=== PATIENT | male | born 1960 | race Caucasian/White ===

== ENCOUNTER 2017-03-22 10:40 | Emergency (ER) | payer MEDICARE ==
[2017-03-22 12:49] LABS: BUN/CREATININE RATIO 16 (0-10); HEMOGLOBIN 13.5 gm/dl (14.0-17.5); RED BLOOD COUNT 3.73 M/UL (4.20-5.50); WHITE BLOOD COUNT 12.6 K/UL (4.5-11.0)
== END 2017-03-22 16:55 | disposition home or self-care (01) ==
LOC: ER1 10:40
PROVIDERS: Nurse Practitioner Family
DX: L02.11 Cutaneous abscess of neck (principal); G89.29 Other chronic pain; M54.9 Dorsalgia, unspecified; I00 Rheumatic fever without heart involvement; E11.65 Type 2 diabetes mellitus with hyperglycemia; K02.9 Dental caries, unspecified; L98.8 Other specified disorders of the skin and subcutaneous tissue; Z79.899 Other long term (current) drug therapy; Z96.649 Presence of unspecified artificial hip joint; Z87.891 Personal history of nicotine dependence
CPT/HCPCS: 36415; 70491; 80053; 85025; 87040; 87081; 87880; 96365; 96366; 96375; 99284; J0295; J3370; J7050; Q9962